=== PATIENT | female | born 1965 ===

== ENCOUNTER → 2020-08-10 09:26 | Outpatient (BNVA) | payer OTHER, SELFPAY | PROVIDERS: PCP Pediatrics; Referring Provider Pediatrics; Visit Provider Internal Medicine Gastroenterology | DX: Z76.89 Persons encountering health services in other specified circumstances (principal) ==

== ENCOUNTER 2020-10-26 13:24 | Outpatient (REF) | payer OTHER, SELFPAY ==
[2020-10-26 13:48] LABS: MANUAL DIFF FLAG NO
[2020-10-26 13:51] LABS: Basophils Percent Auto 0.3 % (0-2); Eosinophils Absolute Auto 0.2 X10*3/uL (0.0-0.4); Eosinophils Percent Auto 1.7 % (0-4); Hematocrit 40.5 % (37-47); Imm Gran Abs Auto 0.02 X10*3/uL (0.00-0.03); Imm Gran Pct Auto 0.2 % (0.0-0.4); Lymphocytes Absolute Auto 3.1 X10*3/uL (1.2-4.9); Lymphocytes Percent Auto 32.5 % (20-40); Mean Corpuscular HGB Conc 34.6 g/dl (31.0-35.0); Mean Corpuscular Hemoglobin 30.8 pg (27.0-33.0); Monocytes Absolute Auto 0.4 X10*3/uL (0.1-1.2); Monocytes Percent Auto 3.9 % (2-11); Neutrophils Absolute Auto 5.9 X10*3/uL (2.0-8.3); Neutrophils Percent Auto 61.4 % (45-73); Platelet Count 242 X10*3/uL (160-400); Red Blood Count 4.55 X10*6/uL (4.20-5.50); White Blood Count 9.6 X10*3/uL (4.8-10.8)
[2020-10-26 14:18] LABS: Glucose Urine UA NEG (NEG); Leukocyte Esterase Urine TRACE (NEG); Nitrite Urine POS (NEG); PH 5.5 (5.0-8.0); Specific Gravity - Urine >= 1.030 (1.005-1.025); Urine Blood NEG (NEG); Urine Ketones NEG (NEG); Urine Protein NEG (NEG-TRACE)
[2020-10-26 14:19] LABS: Appearance Urine HAZY; Color Urine YELLOW
[2020-10-26 14:23] LABS: Alanine Aminotransferase 127 U/L (0-31); Albumin Level 3.9 g/dL (3.5-5.0); Alkaline Phosphatase 134 U/L (39-117); Amylase 37 U/L (28-100); Anion Gap 14 (12-20); Aspartate Amino Transferase 93 U/L (5-31); Bilirubin Total 0.5 mg/dL (0.0-1.0); Blood Urea Nitrogen 13 mg/dL (9-16); Calcium 8.4 mg/dL (8.4-10.2); Carbon Dioxide 21 mmol/L (22-29); Chloride 108 mmol/L (96-108); Estimated Glomerular Filt Rate > 60; Glucose Random 121 mg/dL (60-115); Lipase 5 U/L (8-78); Potassium 3.9 mmol/L (3.3-5.1); Sodium 139 mmol/L (135-145); Total Protein 6.7 g/dL (6.5-8.0)
[2020-10-26 14:28] LABS: Erythrocyte Sedimentation Rate 13 MM/HR (0-20)
[2020-10-26 14:34] LABS: Bacteria Urine 2+ /LPF; Mucus Urine 1+ /LPF; Squamous Epithelial Cell Urine 3+ /LPF
[2020-10-29 15:56] LABS: Immunoglobulin G Subclass 1 625 mg/dL (382-929); Immunoglobulin G Subclass 2 155 mg/dL (241-700); Immunoglobulin G Subclass 3 46 mg/dL (22-178); Immunoglobulin G Subclass 4 82.3 mg/dL (4-86); Immunoglobulin G Total 1064 mg/dL (600-1640)
[2020-10-29 18:17] LABS: Immunoglobulin E 1007 kU/L (<OR=114)
[2020-11-02 17:06] LABS: Histamine Plasma <1.5 ng/mL (< OR = 1.8)
== END 2020-10-26 13:25 | disposition home or self-care (01) ==
LOC: HO.LAB 13:24
PROVIDERS: Visit Provider Internal Medicine Gastroenterology
DX: R10.13 Epigastric pain (principal)
CPT/HCPCS: 36415; 80053; 81001; 82150; 82784; 82785; 83088; 83520; 83690; 85025; 85652; 86140

== ENCOUNTER 2020-11-02 12:00 | Outpatient (REF) | payer OTHER, SELFPAY ==
--- NOTE | ~2020-11-02 | CT_ITS ---
EXAMINATION: CT ABDOMEN AND PELVIS WITH CONTRAST CLINICAL INFORMATION: Epigastric pain COMPARISON: Previous abdominal ultrasound December 2019 TECHNIQUE: Multidetector volumetric images were obtained from the superior aspect of the liver through the pubic symphysis following administration 100 mL of Omnipaque 350 intravenous contrast. Sagittal and coronal reformatted images were obtained on the technologist's workstation. Oral contrast: Yes This CT examination was performed using dose optimization techniques as appropriate, variously including the following: *Automated exposure control *Adjustment of mA and/or kV according to patient size (this includes techniques or standardized protocols for targeted exams where dose is matched to indication/reason for exam; i.e. extremities or head) *Use of iterative reconstruction technique DLP: 842 mGy-cm FINDINGS: LUNG BASES: The visualized lung bases are unremarkable. LIVER, GALLBLADDER, AND BILIARY TREE: The liver is low in attenuation suggestive of fatty infiltration. The liver is upper normal in size, right lobe measuring 18 cm in length. The gallbladder has been removed. No focal liver lesion or biliary duct dilatation. PANCREAS: Unremarkable. SPLEEN: Unremarkable. ADRENAL GLANDS: Unremarkable. KIDNEYS AND URETERS: There is symmetric appearing high attenuation seen dependently in the upper pole calyces. This probably represents excreted contrast in the collecting systems as opposed to renal stone. The kidneys are otherwise unremarkable. BLADDER: Unremarkable. GASTROINTESTINAL TRACT: The small and large bowel are unremarkable. The appendix is is not identified. The stomach is unremarkable. ABDOMINAL WALL: No significant hernia is appreciated. LYMPH NODES: Normal. VASCULAR: Unremarkable. PELVIC VISCERA: Unremarkable. OSSEOUS STRUCTURES: There is mild degenerative spondylosis of the lower lumbar spine. CT/CT abdomen pelvis w con IMPRESSION: Fatty liver. Otherwise unremarkable exam.
[2020-11-02] MEDS: Barium Sulfate Oral (Mocha) 450 ML ORAL.SUSP 900 ML PO (14:55)
== END 2020-11-02 12:01 | disposition home or self-care (01) ==
LOC: HO.CT 12:00
PROVIDERS: Visit Provider Internal Medicine Gastroenterology
DX: R10.13 Epigastric pain (principal)
CPT/HCPCS: 74177; Q9967

== ENCOUNTER 2020-12-20 11:03 | Day surgery (SDC) | payer OTHER, SELFPAY ==
[2020-12-20 11:55] VITALS: BP 145/73; PULSE 66; RESP 20; TEMP 36.4; O2SAT 100; BMI 41.8; BMI 48.8
[2020-12-20 12:03] LABS: Glucose, Whole Blood 146 mg/dL (60-115)
--- NOTE | 2020-12-20 12:09 | HO.ANESPROP2 ---
[facility] Active Problems Active Problems: All Active Problems (Updated 12/14/20 @ 11:04 by Anna Johnson) Epigastric abdominal pain (Acute) Past Medical History Medical History Anxiety and depression Arthritis Asthma COPD (chronic obstructive pulmonary disease) Diabetes Fibromyalgia GERD (gastroesophageal reflux disease) History of epigastric pain History of ETOH abuse History of seizure Hx of head injury Migraines Multiple personality disorder Myocardial infarction [place] (nonalcoholic steatohepatitis) Panic attacks Right hand paresthesia Family History Family History Father No problems noted. Mother Bone disease Stroke Diabetes Surgical History Surgical History History of esophagogastroduodenoscopy (EGD) History of tubal ligation Hx of appendectomy Hx of section Hx of cholecystectomy Hx of colonoscopy Hx of hand surgery Social History Social History Alcohol intake: current Alcohol intake frequency: holidays/special occasions only Smoking Status: Current every day smoker Cigarettes Per Day: 5 Advance Directives: No Advance Directives Information Provided: Yes Meds Allergies Allergy/AdvReac Type Severity Reaction Status Date / Time acetaminophen [From TYLENOL] Allergy Unknown RASH, Unverified 05/17/20 19:35 SWELLING amoxicillin [AMOXICILLIN] Allergy Unknown RASH, Unverified 05/17/20 19:35 SWELLING ibuprofen [IBUPROFEN] Allergy Unknown RASH, Unverified 05/17/20 19:35 SWELLING latex [LATEX] Allergy Unknown RASH, Unverified 05/17/20 19:35 SWELLING, DIFF BREATHING morphine [MORPHINE] Allergy Unknown SWELLING Unverified 05/17/20 19:35 Penicillins [PENICILLINS] Allergy Unknown RASH, Unverified 05/17/20 19:35 SWELLING All Pain meds Allergy Unknown swelling Uncoded 08/10/20 09:28 Active Medications: Current Medications Generic Name Dose Route Start Last Admin Trade Name Freq PRN Reason Stop Dose Admin Lactated Ringer's 1,000 mls @ 20 mls/hr 12/19/20 14:00 Lr IVCONT .Q24H USAMA Exam Exam Date and Time: December 20, 2020 1209 Pertinent Lab Results Pertinent Lab Results: Laboratory Tests 12/20/20 11:53 POC Glucose 146 H Airway Mallampati Class: II TM Dist: >3cm Neck ROM: Full Loose/Missing/Broken Teeth: Yes Heart: TWI Assessment and Plan Assessment Anesthesia Assessment: Anesthesia Plan Discussed and Chart Reviewed Final Anesthetic Review NPO: Yes ASA Class: III Final Preanesthetic Review: No Changes in Pt Med Stat, Meds/Allgs Chart Reviewed, Consent Obtained/Reviewed and Anes Risks/Benef Reviewed Patient Risk: High Procedure Risk: Low Anesthetic Plan Anesthetic Plan: MAC: Disposition: Standard PACU
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
[2020-12-20] MEDS: Lactated Ringers 1,000 ML 20 ML IVCONT (12:28)
--- NOTE | 2020-12-20 13:25 | PM.OP ---
Brief Operative Note Date of Service: 12/20/20 Pre-op diagnosis: abdo pain Post-op diagnosis: same Procedure: see op note Surgeon: Amelie Baez MD Anesthesia: MAC Estimated blood loss (mL): 0 Condition: stable Disposition: PACU
--- NOTE | 2020-12-20 13:26 | P.OP_ITS ---
Operative Note Operative Note Date of Service: 12/20/20 Narrative: Operative Information Procedure Description: EGD, Colonoscopy FLEXIBLE TRANSORAL UPPER GASTROINTESTINAL ENDOSCOPY AND COLONOSCOPY PROCEDURE NOTE UPPER ENDOSCOPY Consent: Indications for the procedure and potential complications of bleeding, perforation, reaction to medications and missed diagnosis were discussed with the patient and informed consent was obtained. Instrument: Olympus GIF H 190 J mid size upper endoscope Monitoring: Vital signs and clinical assessment, continuous EKG monitoring, Pulse oximetry, Carbon Dioxide monitoring and blood pressure monitoring were done throughout the procedure. Procedure: The patient was placed in the left lateral decubitis position and pre-procedure medications were administered and a bite block was placed. The endoscope was inserted into the mouth and advanced under direct vision to the third part of duodenum. A careful inspection was made as the upper endoscope was withdrawn including a retroflexed examination of the proximal stomach; Findings and interventions are described below. Findings: Larynx:normal Esophagus: GE junction at 38 cm, diaphragm hiatus at 38 cm, LA grade esophagitis at GEJ, bx taken from GEJ and random esophagus in separate jars Stomach: Patchy erythema. Biopsies were obtained. Grade 2 flap valve on retroflexed examination of the cardia. Pylorus dilated with 20 mm balloon in case of pylorospasm--no tears seen Duodenum: Normal bulb and descending duodenum, bx taken Intervention: Biopsies as noted above COLONOSCOPY Instrument: Olympus variable stiffness pediatric scope 190L Colonoscopy Monitoring: Vital signs and clinical assessment, continuous EKG monitoring, Pulse oximetry, Carbon Dioxide monitoring and blood pressure monitoring were done throughout the procedure. Colon withdrawal time was 15 minutes. Procedure: The patient was placed in the left lateral decubitis position and pre-procedure medications were administered. After a digital rectal examination of the ano-rectum, the video colonoscope was inserted into the rectum and advanced through the colon to the cecum/TI. The colonoscope was slowly withdrawn in a retrograde panoramic fashion and the colon mucosa was carefully examined including a retroflexed view of the rectum. Findings and interventions are described below. Procedure Difficulty:easy Findings: Bx taken from TI, right colon, left/transverse and rectum in different jars. Terminal Ileum-normal Cecum:normal Ascending Colon: 6-8 mm sessile polyp removed with forceps Transverse Colon -normal Descending Colon:normal Sigmoid Colon: x 4 sessile polyps noted, x 2 removed with forceps and measured about 5-7 mm and another 2 sessile polyps measuring about 10 mm removed with cold snare Rectum: Retroflexion with small internal hemorrhoids, grade I Anorectum - normal Colon preparation: Bigelow Bowel Preparation Scale Right colon; 3 Transverse colon: 3 Left colon; 3 (0 = Unprepared colon segment with mucosa not seen due to solid stool that cannot be cleared. 1 = Portion of mucosa of the colon segment seen, but other areas of the colon segment not well seen due to staining, residual stool and/or opaque liquid. 2 = Minor amount of residual staining, small fragments of stool and/or opaque liquid, but mucosa of colon segment seen well. 3 = Entire mucosa of colon segment seen well with no residual staining, small fragments of stool or opaque liquid) Impression and Post Procedure Diagnosis: Endoscopy Findings: gastritis esophagitis Colonoscopy Findings: internal hemorrhoids polyps Plan: Await Pathology results Repeat Colonoscopy in 3-5 yrs if adenomas, otherwise 10 years if hyperplastic or earlier if clinically indicated High fiber diet leaflet avoid straining at stool, epsom salts and sitz bath, anusol supps or cream prn Above findings were reviewed with the patient and relevant handouts were provided if indicated.
[2020-12-20 13:30] VITALS: BP 111/61; PULSE 68; RESP 16; TEMP 36.1; O2SAT 99
[2020-12-20 13:44] VITALS: BP 120/63; PULSE 72; RESP 16; TEMP 36.6; O2SAT 96
--- NOTE | 2020-12-20 14:37 | PC.NURSE ---
Patient wearing all five rings when discharged at front of hospital by this nurse.
== END 2020-12-20 14:35 | disposition home or self-care (01) ==
PROVIDERS: PCP Nurse Practitioner Family; Visit Provider Internal Medicine Gastroenterology
PROC: (CPT 45385; principal; 2020-12-20 12:50)
DX: R10.13 Epigastric pain (principal); D12.2 Benign neoplasm of ascending colon; D12.5 Benign neoplasm of sigmoid colon; K64.0 First degree hemorrhoids; K29.50 Unspecified chronic gastritis without bleeding; K20.90 Esophagitis, unspecified without bleeding; K21.9 Gastro-esophageal reflux disease without esophagitis; K44.9 Diaphragmatic hernia without obstruction or gangrene; J44.9 Chronic obstructive pulmonary disease, unspecified; E11.9 Type 2 diabetes mellitus without complications; Z79.899 Other long term (current) drug therapy; Z88.0 Allergy status to penicillin; Z88.8 Allergy status to other drugs, medicaments and biological substances; Z91.040 Latex allergy status; F17.210 Nicotine dependence, cigarettes, uncomplicated
CPT/HCPCS: 45385; 45380; 43245; 43239; 82947; 88305; 88341; 88342; C1726

== ENCOUNTER 2021-06-05 10:30 | Day surgery (SDC) | payer OTHER, SELFPAY ==
--- NOTE | 2021-06-04 13:13 | HO.ANESPROP2 ---
Documented by User: Ivis Diana NP 06/04/21 13:15 HPI - Anesthesia Eval Consult details Narrative: 56yo F for Upper Endoscopy with gastric dilation Multiple Med Allergies s/p EGD and Carpenter with TIVA 11/2020 [facility] Active Problems Active Problems: All Active Problems (Updated 04/05/21 @ 11:54 by Amelie Baez MD) Epigastric abdominal pain (Acute) Dysphagia (Acute) Past Medical History Medical History Anxiety and depression Arthritis Asthma COPD (chronic obstructive pulmonary disease) Diabetes Fibromyalgia GERD (gastroesophageal reflux disease) History of epigastric pain History of ETOH abuse History of seizure Hx of head injury Migraines Multiple personality disorder Myocardial infarction [place] (nonalcoholic steatohepatitis) Panic attacks Right hand paresthesia Family History Family History Father No problems noted. Mother Bone disease Stroke Diabetes Surgical History Surgical History (Updated 05/31/21 @ 12:25 by Anna Johnson RN) History of esophagogastroduodenoscopy (EGD) History of tubal ligation Hx of appendectomy Hx of section Hx of cholecystectomy Hx of colonoscopy Hx of hand surgery Social History Social History Alcohol intake: current Alcohol intake frequency: holidays/special occasions only Cigarettes Per Day: 5 Advance Directives: No Advance Directives Information Provided: Yes Meds Allergies Allergy/AdvReac Type Severity Reaction Status Date / Time acetaminophen [From TYLENOL] Allergy Unknown RASH, Unverified 05/31/21 12:31 SWELLING amoxicillin [AMOXICILLIN] Allergy Unknown RASH, Unverified 05/31/21 12:31 SWELLING ibuprofen [IBUPROFEN] Allergy Unknown RASH, Unverified 05/31/21 12:31 SWELLING latex [LATEX] Allergy Unknown RASH, Unverified 05/31/21 12:31 SWELLING, DIFF BREATHING morphine [MORPHINE] Allergy Unknown SWELLING Unverified 05/31/21 12:31 Penicillins [PENICILLINS] Allergy Unknown RASH, Unverified 05/31/21 12:31 SWELLING All Pain meds Allergy Unknown swelling Uncoded 05/31/21 12:31 Exam Exam Date and Time: June 04, 2021 1313 Assessment and Plan Assessment Anesthesia Assessment: Chart Reviewed Documented by User: Paolo Kenny MD 06/05/21 10:50 PMFSH Past Medical History Medical History Anxiety and depression Arthritis Asthma COPD (chronic obstructive pulmonary disease) Diabetes Fibromyalgia GERD (gastroesophageal reflux disease) History of epigastric pain History of ETOH abuse History of seizure Hx of head injury Migraines Multiple personality disorder Myocardial infarction [place] (nonalcoholic steatohepatitis) Panic attacks Right hand paresthesia Family History Family History Father No problems noted. Mother Bone disease Stroke Diabetes Surgical History Surgical History (Updated 05/31/21 @ 12:25 by Anna Johnson, RN) History of esophagogastroduodenoscopy (EGD) History of tubal ligation Hx of appendectomy Hx of section Hx of cholecystectomy Hx of colonoscopy Hx of hand surgery Social History Social History Alcohol intake: current Alcohol intake frequency: holidays/special occasions only Cigarettes Per Day: 5 Advance Directives: No Advance Directives Information Provided: Yes Meds Allergies Allergy/AdvReac Type Severity Reaction Status Date / Time acetaminophen [From TYLENOL] Allergy Unknown RASH, Unverified 05/31/21 12:31 SWELLING amoxicillin [AMOXICILLIN] Allergy Unknown RASH, Unverified 05/31/21 12:31 SWELLING ibuprofen [IBUPROFEN] Allergy Unknown RASH, Unverified 05/31/21 12:31 SWELLING latex [LATEX] Allergy Unknown RASH, Unverified 05/31/21 12:31 SWELLING, DIFF BREATHING morphine [MORPHINE] Allergy Unknown SWELLING Unverified 05/31/21 12:31 Penicillins [PENICILLINS] Allergy Unknown RASH, Unverified 05/31/21 12:31 SWELLING All Pain meds Allergy Unknown swelling Uncoded 05/31/21 12:31 Exam Airway Mallampati Class: IV TM Dist: >3cm Neck ROM: Full
[2021-06-05 10:38] VITALS: BP 108/55; PULSE 54; RESP 18; TEMP 36.5; O2SAT 96; BMI 45.3
[2021-06-05 10:57] LABS: Glucose, Whole Blood 122 mg/dL (60-115)
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
--- NOTE | 2021-06-05 10:59 | PM.OP ---
Brief Operative Note Date of Service: 06/05/21 Pre-op diagnosis: abdo pain, good results with prior gastric dilation Post-op diagnosis: same Procedure: see op note Surgeon: Amelie Baez MD Anesthesia: MAC Was an Bookkeeper Receptionist used for this Procedure?: No Estimated blood loss (mL): 0 Condition: stable Disposition: PACU
--- NOTE | 2021-06-05 10:59 | W.PM.OPN ---
Operative Note Operative Note Date of Service: 06/05/21 Narrative: Procedure Description: EGD FLEXIBLE TRANSORAL UPPER GASTROINTESTINAL ENDOSCOPY UPPER ENDOSCOPY Consent: Indications for the procedure and potential complications of bleeding, perforation, reaction to medications and missed diagnosis were discussed with the patient and informed consent was obtained. Instrument: Olympus GIF H 190 J mid size upper endoscope Monitoring: Vital signs and clinical assessment, continuous EKG monitoring, Pulse oximetry, Carbon Dioxide monitoring and blood pressure monitoring were done throughout the procedure. Procedure: The patient was placed in the left lateral decubitis position and pre-procedure medications were administered and a bite block was placed. The endoscope was inserted into the mouth and advanced under direct vision to the third part of duodenum. A careful inspection was made as the upper endoscope was withdrawn including a retroflexed examination of the proximal stomach; Findings and interventions are described below. Findings: Larynx:normal Esophagus: GE junction at 38 cm, diaphragm hiatus at 38 cm, no varices or esophagitis. Stomach: Normal mucosa. Grade 2 flap valve on retroflexed examination of the cardia. 18 mm pyloric balloon inflated across the pylorus Duodenum: Normal bulb and descending duodenum, Intervention: pyloric dilation Impression/Findings: pyloric dilation PLAN: cont with sun, assess response to dilation,
[2021-06-05] MEDS: Lactated Ringers 1,000 ML 100 ML IVCONT (11:35)
[2021-06-05 12:04] VITALS: BP 98/53; PULSE 65; RESP 12; TEMP 36.2; O2SAT 95
[2021-06-05 12:20] VITALS: BP 104/67; PULSE 56; RESP 16; TEMP 36.2
== END 2021-06-05 13:05 | disposition home or self-care (01) ==
PROVIDERS: Visit Provider Internal Medicine Gastroenterology
PROC: 0DJ08ZZ Inspection of Upper Intestinal Tract, Via Natural or Artificial Opening Endoscopic (ICD-10-PCS; CPT 43235; principal; 2021-06-05 11:50)
DX: R10.13 Epigastric pain (principal); K44.9 Diaphragmatic hernia without obstruction or gangrene; K21.9 Gastro-esophageal reflux disease without esophagitis; K75.81 Nonalcoholic steatohepatitis (NASH); J44.9 Chronic obstructive pulmonary disease, unspecified; E11.9 Type 2 diabetes mellitus without complications; I25.2 Old myocardial infarction; Z79.899 Other long term (current) drug therapy; Z88.0 Allergy status to penicillin; Z88.8 Allergy status to other drugs, medicaments and biological substances; Z91.040 Latex allergy status; Z90.49 Acquired absence of other specified parts of digestive tract; F17.210 Nicotine dependence, cigarettes, uncomplicated
CPT/HCPCS: 43245; 82947; C1726

== ENCOUNTER → 2021-06-14 11:50 | Outpatient (BNVA) | payer OTHER, SELFPAY | PROVIDERS: Visit Provider Internal Medicine Gastroenterology ==

== ENCOUNTER → 2021-09-17 10:29 | Outpatient (BNVA) | payer OTHER, SELFPAY | PROVIDERS: Visit Provider Internal Medicine Gastroenterology ==

== ENCOUNTER → 2022-09-12 11:50 | Outpatient (BNVA) | payer OTHER, SELFPAY | PROVIDERS: PCP Pediatrics; Visit Provider Internal Medicine Gastroenterology | DX: Z13.89 Encounter for screening for other disorder (principal) ==

== ENCOUNTER 2023-01-23 10:30 | Outpatient (REF) | payer OTHER, SELFPAY ==
[2023-01-23 11:54] LABS: MANUAL DIFF FLAG NO
[2023-01-23 12:17] LABS: Basophils Percent Auto 0.3 % (0-2); Eosinophils Absolute Auto 0.2 X10*3/uL (0.0-0.4); Eosinophils Percent Auto 1.7 % (0-4); Hematocrit 40.3 % (37.0-47.0); Hemoglobin 13.7 g/dl (12.0-16.0); Imm Gran Abs Auto 0.03 X10*3/uL (0.00-0.03); Imm Gran Pct Auto 0.3 % (0.0-0.4); Lymphocytes Percent Auto 30.9 % (20-40); Mean Corpuscular Hemoglobin 29.7 pg (27.0-33.0); Mean Corpuscular Volume 87.2 fL (80.0-98.0); Mean Platelet Volume 10.4 fL (9.4-12.3); Monocytes Absolute Auto 0.4 X10*3/uL (0.1-1.2); Monocytes Percent Auto 3.9 % (2-11); Neutrophils Percent Auto 62.9 % (45-73); Platelet Count 291 X10*3/uL (160-400); Red Blood Count 4.62 X10*6/uL (4.20-5.50); Red Cell Distribution Width 12.7 % (11.0-16.0); White Blood Count 9.6 X10*3/uL (4.8-10.8)
[2023-01-23 12:25] LABS: Estimated Average Glucose 192 mg/dL; Hemoglobin A1c % 8.3 %
[2023-01-23 12:52] LABS: Alanine Aminotransferase 38 U/L (0-31); Albumin Level 3.7 g/dL (3.5-5.0); Alkaline Phosphatase 138 U/L (39-117); Anion Gap 12 (12-20); Aspartate Amino Transferase 27 U/L (5-31); Bilirubin Total 0.5 mg/dL (0.0-1.0); Blood Urea Nitrogen 12 mg/dL (9-16); C Reactive Protein 0.64 mg/dL (< or = 0.50); Calcium 8.8 mg/dL (8.4-10.2); Carbon Dioxide 24 mmol/L (22-29); Chloride 110 mmol/L (96-108); Cholesterol 122 mg/dL; Estimated Glomerular Filt Rate > 60; Glucose Random 126 mg/dL (60-115); HDL Cholesterol 42 mg/dL; LDL Cholesterol Calculated 62 mg/dl; Potassium 4.1 mmol/L (3.3-5.1); Sodium 142 mmol/L (135-145); Total Protein 6.4 g/dL (6.5-8.0); Triglycerides 94 mg/dL
[2023-01-23 13:21] LABS: Ferritin 100 ng/mL (10-250); Folate 12.1 ng/mL (> or = 4.0); Vitamin B12 396 pg/mL (200-900)
[2023-01-23 13:30] LABS: Reflex LDLD? No
[2023-01-30 04:14] LABS: Vitamin A 27 mcg/dL (38-98)
[2023-02-03 00:34] LABS: Vitamin C 0.1 mg/dL (0.3-2.7)
== END 2023-01-23 10:31 | disposition home or self-care (01) ==
LOC: HO.LAB 10:30
PROVIDERS: PCP Pediatrics; Visit Provider Internal Medicine Gastroenterology
DX: R10.13 Epigastric pain (principal); K75.81 Nonalcoholic steatohepatitis (NASH); I25.10 Atherosclerotic heart disease of native coronary artery without angina pectoris; E78.5 Hyperlipidemia, unspecified
CPT/HCPCS: 36415; 80053; 80061; 82180; 82607; 82728; 82746; 83036; 84590; 85025; 86140; 99212

== ENCOUNTER 2023-10-02 08:44 | Outpatient (AMB) | payer OTHER, SELFPAY ==
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
[2023-10-02 08:55] VITALS: BP 139/67; PULSE 60; BMI 43.9
== END 2023-10-02 09:58 | disposition home or self-care (01) ==
PROVIDERS: PCP Pediatrics; Visit Provider Internal Medicine Gastroenterology
DX: R10.13 Epigastric pain (principal); K75.81 Nonalcoholic steatohepatitis (NASH); I73.9 Peripheral vascular disease, unspecified
CPT/HCPCS: 99214

== ENCOUNTER 2023-10-02 08:44 | Outpatient (REF) | payer OTHER, SELFPAY ==
[2023-10-02 10:39] LABS: MANUAL DIFF FLAG NO
[2023-10-02 10:47] LABS: Basophils Percent Auto 0.3 % (0-2); Eosinophils Absolute Auto 0.2 X10*3/uL (0.0-0.4); Eosinophils Percent Auto 1.9 % (0-4); Hematocrit 39.2 % (37.0-47.0); Hemoglobin 13.4 g/dl (12.0-16.0); Imm Gran Abs Auto 0.04 X10*3/uL (0.00-0.03); Imm Gran Pct Auto 0.4 % (0.0-0.4); Lymphocytes Absolute Auto 3.7 X10*3/uL (1.2-4.9); Lymphocytes Percent Auto 37.6 % (20-40); Mean Corpuscular HGB Conc 34.2 g/dl (31.0-35.0); Mean Corpuscular Volume 87.7 fL (80.0-98.0); Mean Platelet Volume 9.9 fL (9.4-12.3); Monocytes Absolute Auto 0.5 X10*3/uL (0.1-1.2); Monocytes Percent Auto 4.6 % (2-11); Neutrophils Absolute Auto 5.4 x10*3/uL (2.0-8.3); Neutrophils Percent Auto 55.2 % (45-73); Platelet Count 278 X10*3/uL (160-400); Red Blood Count 4.47 X10*6/uL (4.20-5.50); Red Cell Distribution Width 12.9 % (11.0-16.0); White Blood Count 9.8 X10*3/uL (4.8-10.8)
[2023-10-02 11:22] LABS: Alanine Aminotransferase 29 U/L (0-31); Albumin Level 3.9 g/dL (3.5-5.0); Alkaline Phosphatase 132 U/L (39-117); Anion Gap 11 (12-20); Aspartate Amino Transferase 19 U/L (5-31); Bilirubin Total 0.3 mg/dL (0.0-1.0); Blood Urea Nitrogen 14 mg/dL (9-16); C Reactive Protein 0.56 mg/dL (< or = 0.50); Calcium 8.7 mg/dL (8.4-10.2); Carbon Dioxide 26 mmol/L (22-29); Chloride 109 mmol/L (96-108); Estimated Glomerular Filt Rate > 60; Glucose Random 105 mg/dL (60-115); Potassium 3.9 mmol/L (3.3-5.1); Sodium 142 mmol/L (135-145); Total Protein 6.9 g/dL (6.5-8.0)
[2023-10-02 11:40] LABS: Ferritin 82 ng/mL (10-250)
[2023-10-02 11:42] LABS: Erythrocyte Sedimentation Rate 16 MM/HR (0-20)
[2023-10-02 11:51] LABS: Folate 7.3 ng/mL (> or = 4.0); Vitamin B12 319 pg/mL (200-900)
[2023-10-02 12:24] LABS: Appearance Urine Clear; Color Urine Yellow; Glucose Urine UA >=1000 mg/dL (Negative); Leukocyte Esterase Urine Negative (Negative); Nitrite Urine Negative (Negative); PH 6.5 (5.0-9.0); Specific Gravity - Urine 1.025 (1.005-1.025); UMIC TRIGGER UACC YES; Urine Blood Negative (Negative); Urine Ketones Negative (Negative); Urine Protein Negative (Neg-Trace)
[2023-10-02 12:28] LABS: Bacteria Urine Trace (None Seen); Hyaline Casts Urine 0-2 /LPF (0-2); RBC Urine 0-2 /HPF (0-2); Squamous Epithelial Cell Urine 0-2 /HPF (0-2); WBC Urine 0-5 /HPF (0-5)
== END 2023-10-02 08:45 | disposition home or self-care (01) ==
LOC: HO.LAB 08:44
PROVIDERS: PCP Pediatrics; Visit Provider Internal Medicine Gastroenterology
DX: K75.81 Nonalcoholic steatohepatitis (NASH) (principal); R10.13 Epigastric pain; I73.9 Peripheral vascular disease, unspecified
CPT/HCPCS: 36415; 80053; 81001; 82607; 82728; 82746; 85025; 85652; 86140; 99212

== ENCOUNTER 2023-10-22 13:50 | Outpatient (REF) | payer OTHER, SELFPAY ==
--- NOTE | ~2023-10-22 | US_ITS ---
EXAMINATION: NONINVASIVE ASSESSMENT OF THE ARTERIES OF BOTH LOWER EXTREMITIES INCLUDING BILATERAL LOWER EXTREMITY DUPLEX. CLINICAL INFORMATION: Peripheral vascular disease COMPARISON: None TECHNIQUE: duplex Doppler techniques with wave form analysis and measurement of velocities in the common femoral, profunda femoral, superficial femoral, popliteal, tibial and peroneal arteries. The study was performed only at rest. FINDINGS: RIGHT LEG Common femoral artery: 202 cm/s, Multiphasic Profunda femoris artery: 67 cm/s, Multiphasic Superficial femoral artery (proximal): 130 cm/s, Multiphasic Superficial femoral artery (mid): 122 cm/s, Multiphasic Superficial femoral artery (distal): 110 cm/s, Multiphasic Proximal Popliteal artery: 91 cm/s, Multiphasic Mid posterior tibial artery: 154 cm/s, monophasic Peroneal artery: 130 cm/s, monophasic LEFT LEG: Common femoral artery: 194 cm/s, Multiphasic Profunda femoris artery: 72 cm/s, Multiphasic Superficial femoral artery (proximal): 123 cm/s, Multiphasic Superficial femoral artery (mid): 128 cm/s, Multiphasic Superficial femoral artery (distal): 121 cm/s, Multiphasic Proximal Popliteal artery: 90 cm/s, Multiphasic Mid posterior tibial artery: 192 cm/s, monophasic Peroneal artery: 127 cm/s, Multiphasic US/US arterial duplex LE BI IMPRESSION: Atherosclerotic disease bilaterally, no hemodynamically significant stenosis in the bilateral lower extremities, however there is monophasic flow below the calf bilaterally.
== END 2023-10-22 13:51 | disposition home or self-care (01) ==
LOC: HO.US 13:50
PROVIDERS: PCP Pediatrics; Visit Provider Internal Medicine Gastroenterology
DX: I73.9 Peripheral vascular disease, unspecified (principal); K75.81 Nonalcoholic steatohepatitis (NASH); R10.13 Epigastric pain
CPT/HCPCS: 93925

== ENCOUNTER 2024-07-26 09:37 | Outpatient (AMB) | payer OTHER, SELFPAY ==
[2024-07-26 09:44] VITALS: BMI 43.9
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
== END 2024-07-26 10:58 | disposition home or self-care (01) ==
PROVIDERS: PCP Pediatrics; Visit Provider Internal Medicine Gastroenterology
DX: K63.5 Polyp of colon (principal)
CPT/HCPCS: 99213

== ENCOUNTER → 2024-07-26 09:37 | Outpatient (BNVA) | payer OTHER, SELFPAY | PROVIDERS: PCP Pediatrics; Visit Provider Internal Medicine Gastroenterology | DX: Z91.89 Other specified personal risk factors, not elsewhere classified (principal); K63.5 Polyp of colon | CPT/HCPCS: 99212 ==

== ENCOUNTER 2025-01-03 07:01 | Day surgery (SDC) | payer OTHER, SELFPAY ==
[2024-11-08 14:18] VITALS: BMI 43.9
--- OUTSIDE RECORDS SUMMARY | 2024-11-10 08:55 | XMS_ITS | Clinical Summary ---
Author Organization [email or web address] [facility] it Address [address] [place] [address] Care Team Providers Care Vaccine Key Customer Leader Name Role Phone Shanna Pires MD Primary Care Provider [phone] Social History Tobacco Use Types Packs/Day Years Used Date Smoking Tobacco: Never Assessed Comments Unknown Sex and Gender Information Value Date Recorded Sex Assigned at Not on file Legal Sex Female 8:58 AM EST Gender Identity Not on file Sexual Orientation Not on file Plan of Treatment Health Maintenance Due Date Last Done Comments Breast Cancer Screening 1966 DTaP,Tdap,and Td Vaccines (1 - Tdap) 1985 Hepatitis B Vaccines (1 of 3 - 19+ 3-dose series) 1985 Cervical Cancer Screening: P ap Smear 1987 Pneumococcal Vaccine: 50+ Ye ars (1 of 1 - PCV) 2016 Zoster Vaccines (1 of 2) 2016 Colorectal Cancer Screening: Colonoscopy 08/03/2022 Depression Screening 08/03/2022 HIV Screening 08/03/2022 Hepatitis C Screening 08/03/2022 Social Influencers of Health Screening 08/03/2022 COVID-19 Vaccine (2023-2 5 season) 2024 Influenza Vaccine (#1) 2024 HIB Vaccines Aged Out No longer eligi ble based on patient's age to complete this topic HPV Vaccines Aged Out No longer eligi ble based on patient's age to complete this topic Hepatitis A Vaccines Aged Out No long er eligible based on patient's age to complete this topic IPV Vaccines Aged Out No longer eligi ble based on patient's age to complete this topic MMR Vaccines Aged Out No longer eligi ble based on patient's age to complete this topic Meningococcal ACWY Vaccine Aged Out N o longer eligible based on patient's age to complete this topic Meningococcal B Vacine Aged Out No lo nger eligible based on patient's age to complete this topic Pneumococcal Vaccine: Pediat rics (0 to 5 Years) and At-Risk Patients (6 to 64 Years) Aged Out No longer eligible b ased on patient's age to complete this topic RSV Immunization Patients Un moise 20 months Aged Out No longer eligible b ased on patient's age to complete this topic Varicella Vaccines Aged Out No longer eligible based on patient's age to complete this topic Advance Directives Documents on File Type Date Recorded Patient Senior Nurse Manager Expl anation Health Care Decision (hx) 10/16/2022 AD HUGHES DIRECTIVE Health Care Decision (hx) 06/08/2019 AD HUGHES DIRECTIVE Health Care Decision (hx) 06/08/2019 AD HUGHES DIRECTIVE Health Care Decision (hx) 06/08/2019 AD HUGHES DIRECTIVE Care Teams Vaccine Key Customer Leader Relationship Specialty Start Date End Date Shanna Pires MD [address] [place] [address] PCP - General 06/03/19
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
--- NOTE | 2025-01-02 12:48 | P.CONAN_ITS ---
Documented by User: Ivis Diana NP 01/02/25 12:51 HPI - Anesthesia Eval Consult details Narrative: 59yo F for Colonoscopy Hx HI r/t cocaine use, negative cath PMFSH Active Problems Active Problems: All Active Problems Colon polyps (Acute) Peripheral vascular disease (Acute) [place] (nonalcoholic steatohepatitis) (Acute) Cardiovascular disease (Acute) Hyperlipidemia (Acute) Vaginal bleeding (Acute) Constipation (Acute) Epigastric abdominal pain (Acute) Dysphagia (Acute) Past Medical History Medical History (Updated 01/03/25 @ 08:52 by Nicole Duncan RN) History of ETOH abuse Diabetes Arthritis Fibromyalgia History of epigastric pain GERD (gastroesophageal reflux disease) [place] (nonalcoholic steatohepatitis) Hx of head injury Right hand paresthesia Panic attacks Migraines Multiple personality disorder Anxiety and depression COPD (chronic obstructive pulmonary disease) Asthma Myocardial infarction Family History Family History Father No problems noted. Mother Bone disease Stroke Diabetes Surgical History Surgical History Hx of hand surgery History of tubal ligation Hx of section Hx of cholecystectomy Hx of appendectomy History of esophagogastroduodenoscopy (EGD) Hx of colonoscopy Social History Social History Alcohol intake: current Alcohol intake frequency: does not drink Patient Tobacco Use Status: Current everyday Tobacco user Tobacco use type: Cigarette Cigarettes Per Day: 3 Years Smoked: 25 Have you been hit, kicked, punched, or otherwise hurt by someone within the past year? If so, by whom?: No Are you DNR?: No Advance Directives: No Advance Directives Information Provided: Yes Meds Allergies Allergy/AdvReac Type Severity Reaction Status Date / Time acetaminophen [From TYLENOL] Allergy Unknown RASH, Verified 07/26/24 09:58 SWELLING amoxicillin [AMOXICILLIN] Allergy Unknown RASH, Verified 07/26/24 09:58 SWELLING ibuprofen [IBUPROFEN] Allergy Unknown RASH, Verified 07/26/24 09:58 SWELLING latex [LATEX] Allergy Unknown RASH, Verified 07/26/24 09:58 SWELLING, DIFF BREATHING morphine [MORPHINE] Allergy Unknown SWELLING Verified 07/26/24 09:58 Penicillins [PENICILLINS] Allergy Unknown RASH, Verified 07/26/24 09:58 SWELLING All Pain meds Allergy Unknown swelling Uncoded 07/26/24 09:58 Home Medications ?Medication ?Instructions ?Recorded ?Confirmed ?Last Taken ?Type fluticasone propionate 220 2 puff inhalation BID 06/14/21 Unknown History mcg/actuation HFA aerosol inhaler (Flovent HFA) insulin glargine U-300 conc 300 unit subcut 09/17/21 Unknown History unit/mL (3 mL) subcutaneous pen (Toujeo Max U-300 SoloStar) albuterol sulfate 90 mcg/actuation 2 puff inhalation Q4H PRN wheezing 03/26/22 Unknown History aerosol inhaler (ProAir HFA) aspirin 81 mg tablet,delayed 81 mg PO DAILY 03/26/22 Unknown History release insulin lispro 100 unit/mL subcut 03/26/22 Unknown History subcutaneous pen lisinopril 5 mg tablet 5 mg PO DAILY 03/26/22 Unknown History carboxymethylcellulose sodium 1 % 1 drp ophthalmic (eye) BID PRN 01/23/23 Unknown History eye drops (Artificial Tears (carboxymethylcellulose)) albuterol sulfate 2.5 mg/3 mL mg inhalation 10/02/23 Unknown History (0.083 %) solution for nebulization Exam Height,Weight and Vital Signs: Height 5 ft 2 in Weight 108.862 kg Assessment and Plan Assessment Anesthesia Assessment: Chart Reviewed Documented by User: Pieter Monge MD 01/03/25 09:06 [facility] Past Medical History Medical History (Updated 01/03/25 @ 08:52 by Nicole Duncan RN) History of ETOH abuse Diabetes Arthritis Fibromyalgia History of epigastric pain GERD (gastroesophageal reflux disease) [place] (nonalcoholic steatohepatitis) Hx of head injury Right hand paresthesia Panic attacks Migraines Multiple personality disorder Anxiety and depression COPD (chronic obstructive pulmonary disease) Asthma Myocardial infarction Family History Family History Father No problems noted. Mother Bone disease Stroke Diabetes Family history of problems with anesthesia: No Surgical History Surgical History Hx of hand surgery History of tubal ligation Hx of section Hx of cholecystectomy Hx of appendectomy History of esophagogastroduodenoscopy (EGD) Hx of colonoscopy History of Problems with Anesthesia: No Social History Social History Alcohol intake: current Alcohol intake frequency: does not drink Patient Tobacco Use Status: Current everyday Tobacco user Tobacco use type: Cigarette Cigarettes Per Day: 3 Years Smoked: 25 Have you been hit, kicked, punched, or otherwise hurt by someone within the past year? If so, by whom?: No Are you DNR?: No Advance Directives: No Advance Directives Information Provided: Yes Meds Allergies Allergy/AdvReac Type Severity Reaction Status Date / Time acetaminophen [From TYLENOL] Allergy Unknown RASH, Verified 07/26/24 09:58 SWELLING amoxicillin [AMOXICILLIN] Allergy Unknown RASH, Verified 07/26/24 09:58 SWELLING ibuprofen [IBUPROFEN] Allergy Unknown RASH, Verified 07/26/24 09:58 SWELLING latex [LATEX] Allergy Unknown RASH, Verified 07/26/24 09:58 SWELLING, DIFF BREATHING morphine [MORPHINE] Allergy Unknown SWELLING Verified 07/26/24 09:58 Penicillins [PENICILLINS] Allergy Unknown RASH, Verified 07/26/24 09:58 SWELLING All Pain meds Allergy Unknown swelling Uncoded 07/26/24 09:58 Home Medications ?Medication ?Instructions ?Recorded ?Confirmed ?Last Taken ?Type fluticasone propionate 220 2 puff inhalation BID 06/14/21 Unknown History mcg/actuation HFA aerosol inhaler (Flovent HFA) insulin glargine U-300 conc 300 unit subcut 09/17/21 Unknown History unit/mL (3 mL) subcutaneous pen (Toujeo Max U-300 SoloStar) albuterol sulfate 90 mcg/actuation 2 puff inhalation Q4H PRN wheezing 03/26/22 Unknown History aerosol inhaler (ProAir HFA) aspirin 81 mg tablet,delayed 81 mg PO DAILY 03/26/22 Unknown History release insulin lispro 100 unit/mL subcut 03/26/22 Unknown History subcutaneous pen lisinopril 5 mg tablet 5 mg PO DAILY 03/26/22 Unknown History carboxymethylcellulose sodium 1 % 1 drp ophthalmic (eye) BID PRN 01/23/23 Unknown History eye drops (Artificial Tears (carboxymethylcellulose)) albuterol sulfate 2.5 mg/3 mL mg inhalation 10/02/23 Unknown History (0.083 %) solution for nebulization Exam Airway Mallampati Class: II TM Dist: <=3cm Neck ROM: Full Loose/Missing/Broken Teeth: No Heart: ok Lungs: ok Other: tox positive Assessment and Plan Assessment Anesthesia Assessment: Anesthesia Plan Discussed Final Anesthetic Review Family History of Problems with Anesthesia: No History of Problems with Anesthesia: No NPO: Yes ASA Class: III Final Preanesthetic Review: No Changes in Pt Med Stat, Meds/Allgs Chart Reviewed, Consent Obtained/Reviewed and Anes Risks/Benef Reviewed Patient Risk: High Procedure Risk: Low Anesthetic Plan Anesthetic Plan: MAC: and Agree w/ Assess. and Plan Disposition: Standard PACU
[2025-01-03 07:46] VITALS: BP 137/95; PULSE 70; RESP 18; TEMP 37.1; O2SAT 96; BMI 37.8
[2025-01-03 08:02] LABS: Glucose, Whole Blood 125 mg/dL (60-115)
--- NOTE | 2025-01-03 08:08 | P.HPSUR_ITS ---
Pre-Procedural Eval Section A - 24 Hr Update-Section A only Date of Service: 01/03/25 Section B - Complete if H&P > 30 days Chief Complaint: Polyp of colon Relevant Family History (Specify if Yes): No Relevant Social History: Tobacco Use Present Medications: see Short Stay Collaborative assessment Medical History: Significant History (History of ETOH abuse Diabetes Arthritis Fibromyalgia History of epigastric pain GERD (gastroesophageal reflux disease) [place] (nonalcoholic steatohepatitis) Hx of head injury Right hand paresthesia Panic attacks Migraines Multiple personality disorder Anxiety and depression History of seizure COPD (c) History of Previous Operations: Relevant previous surgery/procedure and date(s) (Hx of hand surgery History of tubal ligation Hx of section Hx of cholecystectomy Hx of appendectomy History of esophagogastroduodenoscopy (EGD) Hx of colonoscopy) Allergies: Allergies Allergy/AdvReac Type Severity Reaction Status Date / Time acetaminophen [From TYLENOL] Allergy Unknown RASH, Verified 07/26/24 09:58 SWELLING amoxicillin [AMOXICILLIN] Allergy Unknown RASH, Verified 07/26/24 09:58 SWELLING ibuprofen [IBUPROFEN] Allergy Unknown RASH, Verified 07/26/24 09:58 SWELLING latex [LATEX] Allergy Unknown RASH, Verified 07/26/24 09:58 SWELLING, DIFF BREATHING morphine [MORPHINE] Allergy Unknown SWELLING Verified 07/26/24 09:58 Penicillins [PENICILLINS] Allergy Unknown RASH, Verified 07/26/24 09:58 SWELLING All Pain meds Allergy Unknown swelling Uncoded 07/26/24 09:58 Review of Systems Sugical H&P ROS: Negative: Constitution, Cardiovascular, Respiratory, Neurolo gical, Psychiatric, Hem-Onc, Allergic/Immunologic, Gastrointestinal, Genitourinary, Musculoskeletal, Integumentary, Endocrine and Eyes/Ears/Nose/Throat Exam Surgical H&P Exam: Normal: HEENT, Normal: Heart, Normal: Lungs, Normal: Extremities, Normal: Abdomen and Normal: Skin and Significant Findings: Neurological (weakness legs, in wheelchair ) Plan Diagnosis/Plan: Unchanged I have reviewed the history and physical and performed a pertinent physical examination on my patient. No changes have occurred unless specified. Time Spent With Patient Time: Total time managing care of this patient today ____ minutes.
[2025-01-03] MEDS: Lactated Ringers 1,000 ML 100 ML IVCONT (08:18)
[2025-01-03 08:35] LABS: Amphetamine Screen Urine Not Detected (Not Detect); Barbiturates, Urine Not Detected (Not Detect); Benzodiazepines Screen Urine Not Detected (Not Detect); Buprenorphine Scr Not Detected (Not Detect); Cannabinoid Screen Urine POSITIVE (Not Detect); Cocaine Screen Urine POSITIVE (Not Detect); Fentanyl, urine Not Detected (Not Detect); Methadone Screen, Urine Not Detected (Not Detect); Opiate Screen Urine Not Detected (Not Detect); Oxycodone Screen Urine Not Detected (Not Detect); Phencyclidine Screen Urine Not Detected (Not Detect)
--- NOTE | 2025-01-03 08:44 | PC.NURSE ---
pt positive cocaine and marijuana tigerred anesthesia, rn and dr ramsey pt aware
--- NOTE | 2025-01-03 08:47 | PC.NURSE ---
per anesthesia okay to proceed
--- NOTE | 2025-01-03 09:20 | P.OPN-COLO_ITS ---
Colonoscopy Operative Note Operative Note Date of Service: 01/03/25 Narrative: Operative Information Procedure Description: Colonoscopy Indication: hx of colon polyps Anesthesia: MAC COLONOSCOPY Instrument: Olympus variable stiffness pediatric scope 190L Colonoscopy Monitoring: Vital signs and clinical assessment, continuous EKG monitoring, Pulse oximetry, Carbon Dioxide monitoring and blood pressure monitoring were done throughout the procedure. Colon withdrawal time was 15 minutes. Procedure: The patient was placed in the left lateral decubitis position and pre-procedure medications were administered. After a digital rectal examination of the ano-rectum, the video colonoscope was inserted into the rectum and advanced through the colon to the cecum/TI. The colonoscope was slowly withdrawn in a retrograde panoramic fashion and the colon mucosa was carefully examined including a retroflexed view of the rectum. Findings and interventions are described below. Procedure Difficulty: moderate Findings: Terminal Ileum-normal Cecum:normal Ascending Colon: normal Transverse Colon -normal Descending Colon: 6-8 mm sessile polyp removed with cold snare, 4-6 mm sessile polyp removed with cold forceps Sigmoid Colon: normal Rectum: Retroflexion with small internal hemorrhoids seen, grade I, 6-8 mm sessile polyps x 2 removed with cold forceps Anorectum - normal Intervention: cold snare, cold forceps Colon preparation: [place] Bowel Preparation Scale Right colon; 2 Transverse colon: 2 Left colon; 1-2 (0 = Unprepared colon segment with mucosa not seen due to solid stool that cannot be cleared. 1 = Portion of mucosa of the colon segment seen, but other areas of the colon segment not well seen due to staining, residual stool and/or opaque liquid. 2 = Minor amount of residual staining, small fragments of stool and/or opaque liquid, but mucosa of colon segment seen well. 3 = Entire mucosa of colon segment seen well with no residual staining, small fragments of stool or opaque liquid) Impression and Post Procedure Diagnosis: colon polyps internal hemorrhoids Plan: High fiber diet leaflet Avoid straining at stool, epsom salts and sitz bath, anusol supps or cream Repeat Colonoscopy in 2-3 years due to fair prep on left or earlier if cli nically indicated Above findings were reviewed with the patient and relevant handouts were provided if indicated.
[2025-01-03 09:24] VITALS: BP 110/66; PULSE 63; RESP 18; TEMP 36.1; O2SAT 94
[2025-01-03 09:45] VITALS: BP 125/75; PULSE 63; RESP 20; TEMP 36.2; O2SAT 100
== END 2025-01-03 10:32 | disposition home or self-care (01) ==
PROVIDERS: Anesthesiology; PCP Pediatrics; Visit Provider Internal Medicine Gastroenterology
PROC: 0DJD8ZZ Inspection of Lower Intestinal Tract, Via Natural or Artificial Opening Endoscopic (ICD-10-PCS; CPT 45378; principal; 2025-01-03 09:00)
DX: Z12.11 Encounter for screening for malignant neoplasm of colon (principal); Z86.0101 Personal history of adenomatous and serrated colon polyps; D12.4 Benign neoplasm of descending colon; K62.1 Rectal polyp; K64.0 First degree hemorrhoids; K75.81 Nonalcoholic steatohepatitis (NASH); I25.2 Old myocardial infarction; J44.9 Chronic obstructive pulmonary disease, unspecified; M79.7 Fibromyalgia; R20.0 Anesthesia of skin; F41.9 Anxiety disorder, unspecified; E11.9 Type 2 diabetes mellitus without complications; F44.81 Dissociative identity disorder; Z79.4 Long term (current) use of insulin; Z79.51 Long term (current) use of inhaled steroids; Z79.82 Long term (current) use of aspirin; Z79.899 Other long term (current) drug therapy; Z88.0 Allergy status to penicillin; Z88.1 Allergy status to other antibiotic agents; Z88.5 Allergy status to narcotic agent; Z88.8 Allergy status to other drugs, medicaments and biological substances; Z91.040 Latex allergy status; Z87.828 Personal history of other (healed) physical injury and trauma; Z90.49 Acquired absence of other specified parts of digestive tract; Z98.890 Other specified postprocedural states; F17.210 Nicotine dependence, cigarettes, uncomplicated; F10.11 Alcohol abuse, in remission
CPT/HCPCS: 45385; 45380; 80307; 82947; 88305; J2003; J2704; J3010

== ENCOUNTER → 2025-01-03 07:01 | Outpatient (BNV) | payer OTHER, SELFPAY | PROVIDERS: PCP Pediatrics; Visit Provider Internal Medicine Gastroenterology | DX: Z12.11 Encounter for screening for malignant neoplasm of colon (principal); Z86.0100 Personal history of colon polyps, unspecified; D12.4 Benign neoplasm of descending colon; K62.1 Rectal polyp; K64.0 First degree hemorrhoids | CPT/HCPCS: 45380; 45385 ==